=== PATIENT | female | born 1985 | race Caucasian/White ===

== ENCOUNTER 2018-12-03 12:19 | Emergency (ER) | payer MEDICAID ==
[~2018-12-03] VITALS: Ht 165.1 cm; Wt 56.7 kg
[~2018-12-03 12:19] MED LIST: BUPR75TA3 PO
[2018-12-03] MEDS ORDERED: IV NS 0.9% 1,000 ML BAG IV ONE (12:30)
[2018-12-03 12:48] LABS: BASOPHILS % (AUTO) 0.3 % (0.0-2.0); EOSINOPHILS % (AUTO) 1.7 % (0.0-6.0); HEMATOCRIT 38 % (33-45); HEMOGLOBIN 12.5 g/dL (11.5-14.8); LYMPHOCYTES # (AUTO) 2.5 /CMM (0.8-4.8); LYMPHOCYTES % (AUTO) 49.2 % (20.0-44.0); MEAN CORPUSCULAR HGB CONC 33 g/dl (31.0-36.0); MEAN CORPUSCULAR VOLUME 88 fL (82-100); MONOCYTES # (AUTO) 0.3 /CMM (0.1-1.30); MONOCYTES % (AUTO) 5.3 % (2.0-12.0); NEUTROPHILS # (AUTO) 2.2 /CMM (1.8-8.9); NEUTROPHILS % (AUTO) 43.5 % (43.0-81.0); PLATELET COUNT (AUTO) 259 /CMM (150-450); RED BLOOD CELL COUNT(AUTO) 4.25 MIL/uL (4.0-5.2); WHITE BLOOD COUNT (AUTO) 5.1 K/uL (4.3-11.0)
--- NOTE | 2018-12-03 12:50 | NUR ---
PATIENT BIBRA FOUND UNRESPONSIVE ON STREET, BGL 500+, PINPOINT PUPILS, OPEN EYES TO PAIN S/P 400ML NS AND 2MG NARCAN IV WITH NO CHANGE. ON ROOM AIR, BREATHING EVENLY AND UNLABORED. CONNECTED TO THE MONITOR AND PULSE OX. KEPT COMFORTABLE, SITTER AT BEDSIDE FOR CONSTANT MONITORING. WILL CONTINUE TO MONITOR ACCORDINGLY.
--- NOTE | 2018-12-03 12:55 | NUR ---
wheeled patient to ct scan.
[2018-12-03 13:00] LABS: APPEARANCE,URINE Clear (CLEAR); BILIRUBIN,URINE Negative (NEGATIVE); BLOOD, URINE Negative Ery/uL (NEGATIVE); COLOR,URINE Yellow (YELLOW); KETONES,URINE Negative (NEGATIVE); LEUKOCYTE ESTERASE ,URINE Negative (NEGATIVE); NITRITE, URINE Negative (NEGATIVE); PROTEIN,URINE Negative (NEGATIVE); UGLUCOSE 500 MG/DL mg/dL (NEGATIVE); UROBILINOGEN,URINE 0.2 EU/dL (0.2)
[2018-12-03 13:06] LABS: CARBON DIOXIDE 32 mmol/L (21-32); CHLORIDE 101 mmol/L (98-107); POTASSIUM 4.1 mmol/L (3.5-5.1); SODIUM SERUM 138 mmol/L (136-145)
[2018-12-03 13:07] LABS: ALANINE AMINOTRANSFERASE 18 U/L (12-78); ALBUMIN 3.4 g/dL (3.4-5.0); ALKALINE PHOSPHATASE 90 U/L (46-116); ASPARTATE AMINOTRANSFERASE 9 U/L (15-37); BILIRUBIN,DIRECT 0.1 mg/dL (0.0-0.2); BILIRUBIN,TOTAL 0.3 mg/dL (0.2-1.0); CREATININE 0.9 mg/dL (0.6-1.3); UREA NITROGEN, BLOOD 8 mg/dL (7-18)
[2018-12-03 13:08] LABS: TOTAL PROTEIN, SERUM 6.9 g/dL (6.4-8.2)
[2018-12-03 13:09] LABS: ACETAMINOPHEN 0 ug/ml (10-30); SALICYLATE 0.8 mg/dL (2.8-20.0); SERUM AMMONIA 83 umol/L (11-32)
[2018-12-03 13:10] LABS: ALCOHOL, BLOOD < 3 mg/dL (0-0)
[2018-12-03 13:11] LABS: GLUCOSE 478 mg/dL (74-106)
[2018-12-03 13:26] LABS: THYROID STIMULATING HORMONE 1.092 uIU/mL (0.358-3.74)
--- NOTE | 2018-12-04 05:37 | NUR ---
IV removed. Catheter intact and site benign. Pressure and 4x4 applied to site. No bleeding noted.Patient given written and verbal discharge instructions. Patient verbalized understanding of instructions. Patient is ambulatory with steady gait. Refuses offer of long term placement. pt was provided w/ some food and snacks. pt had proper clothes on upon discharge.
[2018-12-04 06:00] VITALS: BP 121/83
== END 2018-12-04 06:00 | disposition home or self-care (01) ==
LOC: ER 12:38
DX: F15.129 Other stimulant abuse with intoxication, unspecified (principal); E10.65 Type 1 diabetes mellitus with hyperglycemia; G43.909 Migraine, unspecified, not intractable, without status migrainosus; R41.82 Altered mental status, unspecified; F20.9 Schizophrenia, unspecified; F17.200 Nicotine dependence, unspecified, uncomplicated; Z59.0 Homelessness; Z79.899 Other long term (current) drug therapy
CPT/HCPCS: 36415; 70450; 71045; 80048; 80076; 80305; 80307; 80329; 81001; 82140; 82962; 83605 ×2; 84443; 84484; 84703; 85025; 85730; 87086; 93005; 96360; 99284; G0480; J7030; 81000-TC